=== PATIENT | female | born 1955 | race Caucasian/White ===

== ENCOUNTER 2018-12-13 18:43 | Emergency (ER) | payer OTHER ==
--- NOTE | 2018-12-13 19:11 | ED Physician Documentation ---
Animal Bite - HISTORIAN Historian: patient - HPI Stated Complaint: dog bite Chief Complaint: Animal Bite Additional Information: Patient presents to ED with dog bite to left calf. 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 Dog had vaccinations 3 weeks ago. Patient is not up to date on tetanus. Onset: just prior to arrival Where: work Animal: dog Appearance of Animal: appeared well Animal's Immunization Status: UTD Observation/ Capture of Animal: animal is known, can be observed Context of Attack: "unprovoked" attack Severity of Injury: bitten Location of Injury: L lower extremity Associated Symptoms: none, pain - ROS CONST: none EYES/ENT: none CVS/RESP: none NEURO: none GI/: none MS/SKIN/LYMPH: none - PAST HX Past History: none - SOCIAL HX Smoking History: non-smoker Alcohol Use: none Drug Use: none - FAMILY HX Family History: none - REVIEWED ASSESSMENTS Nursing Assessment Reviewed: Yes Vitals Reviewed: Yes Animal Bite Physical Exam - Physical Exam General Appearance: no acute distress, alert Skin: intact Neuro/Vascular/Tendon: oriented x3 Psych: mood/affect nml HEENT: MARINA Neck: uninjured, nml inspection Resp/CVS: chest non-tender, breath sounds nml, heart sounds nml Abdomen: uninjured,nml inspection Back: uninjured, nml inspection Extremities: other (3 abrasions, 1 puncture wound to left calf. ) Discharge Clincal Impression: Dog bite of calf Qualifiers: Encounter type: initial encounter Laterality: left Qualified Code(s): S81.852A - Open bite, left lower leg, initial encounter; W54.0XXA - Bitten by dog, initial encounter Referrals: Ray Hatfield MD [Primary Care Provider] - 2 Days Additional Instructions: 1. Take antibiotic until gone 2. Wash abrasions twice daily with antibacterial soap then apply triple antibiotic ointment 3. Follow up with PCP within 1 week 4. Return to ER for new or worsening symptoms Condition: Stable Disposition: 01 HOME, SELF-CARE Decision to Admit: NO Date of Decison to Admit: 12/13/18 Decision Time: 19:24
[2018-12-13] MEDS: DIPH,PERTUSS(ACELL),TET VAC/PF 0.5 ML DISP.SYRIN IM ONE (19:58)
[2018-12-13 20:47] VITALS: BP 169/61
== END 2018-12-13 20:04 | disposition home or self-care (01) ==
LOC: ED 18:43
DX: S81.852A Open bite, left lower leg, initial encounter (principal); W54.0XXA Bitten by dog, initial encounter; Y99.0 Civilian activity done for income or pay
CPT/HCPCS: 90471; 90715; 99283; 99284

== ENCOUNTER 2018-12-17 12:50 | Emergency (ER) | payer OTHER ==
--- NOTE | 2018-12-17 13:27 | ED Physician Documentation ---
Wound Recheck - HISTORIAN Historian: patient - HPI Stated Complaint: recheck dog bite Chief Complaint: Wound Recheck Additional Information: Patient presents to ED with dog bite to left calf. Patient was seen on 12/14/18 for the initial bite. She returns to ER because the pain in her calf is worse and she does not think she can return to work. Previous ED Treatment: other (tetanus) Antibiotics Given: prescription Symptoms Since Procedure: pain. denies: redness, discharge - ROS NEURO: denies: headache CONST: denies: recent illness EYES/ENT: denies: problems with vision CVS/RESP: denies: chest pain, shortness of breath MS/SKIN/LYMPH: leg swelling GI/: denies: vomiting, nausea - PAST HX Past History: none Allergies/Adverse Reactions: Allergies Allergy/AdvReac Type Severity Reaction Status Date / Time morphine Allergy Intermediate Hives Verified 12/17/18 13:28 Home Medications: Ambulatory Orders Medication Instructions Recorded Insulin Aspart Prot/Insuln Asp 15 unit SQ DAILY 12/13/18 [Novolog Mix 70-30 Flexpen] Insulin Aspart Prot/Insuln Asp 30 unit SQ HS 12/13/18 [Novolog Mix 70-30 Flexpen] Lisinopril/Hydrochlorothiazide 1 each PO DAILY 12/13/18 [Lisinopril-Hctz 20-12.5 mg Tab] Amoxicillin/Potassium Clav 875 mg PO BID 12/17/18 [Augmentin 875-125 Tablet] - SOCIAL HX Smoking History: non-smoker Alcohol Use: none Drug Use: none - FAMILY HX Family History: none - VITAL SIGNS Vital Signs: Vital Signs Temp Pulse Resp BP Pulse Ox 169/61 12/13/18 19:55 - REVIEWED ASSESSMENTS Nursing Assessment Reviewed: Yes Vitals Reviewed: Yes Physical Exam - Physical Exam General Appearance: WD/WN, no apparent distress Eye Exam: bilateral eye: PERRL, EOMI Neck Exam: non-tender, supple Respiratory: chest non-tender, lungs clear, normal breath sounds Cardiovascular/Chest: normal peripheral pulses, regular rate, rhythm Gastrointestinal/Abdominal: normal bowel sounds, non tender, soft Back Exam: normal inspection Extremity: normal range of motion, swelling (left calf hematoma, 2 puncture wounds healing well, no sign of infection) Neurologic: alert, normal mood/affect Skin Exam: normal color Lymphatic: no adenopathy Discharge Clincal Impression: Dog bite of calf Qualifiers: Encounter type: subsequent encounter Laterality: right Qualified Code(s): S81.851D - Open bite, right lower leg, subsequent encounter Hematoma of right lower extremity Qualifiers: Encounter type: initial encounter Qualified Code(s): S80.11XA - Contusion of right lower leg, initial encounter Referrals: Ray Hatfield MD [Primary Care Provider] - 2 Days Additional Instructions: 1. Ibuprofen 800mg every 8 hours and/or Tylenol 650mg every 4 hours as needed for pain 2. Add Prilosec daily while taking larger doses of Ibuprofen 3. Continue Augmentin 4. Apply ANTONIA bandage as needed for comfort. Remove with rest/sleep 5. Follow up with PCP within 1 week 6. Return to ER for new or worsening symptoms Condition: Stable Decision to Admit: NO Date of Decison to Admit: 12/17/18 Decision Time: 13:27
[2018-12-17 13:28] VITALS: BP 163/60
== END 2018-12-17 13:32 ==
LOC: ED 12:50
DX: S80.11XA Contusion of right lower leg, initial encounter (principal); S81.851D Open bite, right lower leg, subsequent encounter; W54.0XXA Bitten by dog, initial encounter
CPT/HCPCS: 99281; 99283